=== PATIENT | female | born 1960 | race Caucasian/White ===

== ENCOUNTER 2019-10-09 13:39 | Observation (INO) | payer BC, OTHER ==
[~2019-10-09] VITALS: Ht 172.7 cm; Wt 113.4 kg
--- NOTE | 2019-10-09 14:20 | NUR ---
PATIENT TO ROOM 7
[2019-10-09] MEDS ORDERED: SODIUM CHLORIDE 0.9% 1000ML 1,000 ML IV STA (14:46)
--- OUTSIDE RECORDS SUMMARY | 2019-10-09 14:59 | XMS REPORT | Encounter Summary ---
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 Alma Lane Garcia 3 [phone] Reason for Visit Annual physical - female with [employer] Instructions 1. Adult health examination 2. Hyperglycemia due to type 2 diabetes mellitus HbA1c (hemoglobin A1c), blood 3. Screening for malignant neoplasm of c ervix pap, IG + HPV mRNA E6/E7 4. Screening for malignant neoplasm of b reast mammogram screening referral - PLEAS E CALL PATIENT TO SCHEDULE 5. Body mass index 25-29 - overweight learning about healthy weight Discussion Note: None recorded. Plan of Care Reminders Provider Appointments None recorded. Lab HbA1C (Hemoglobin a1C), Blood 01/15/2019 [facility] Pap, IG + HPV mRNA E6/E7 01/15/2019 [facility] Referral Mammogram Screening Referral [facility]2019 [facility] Procedures None recorded. Surgeries None recorded. Imaging None recorded. Medications Name Start Date aspirin 81 mg tablet,delayed release atorvastatin 40 mg tablet 1 tab qd clopidogrel 75 mg tablet 1 tab qd CoQ-10 3 times weekly Corlanor 5 mg tablet 1 tab bid Fish Oil 3 times weekly Fluarix Quad [id number] (PF) 60 mcg (15 mcg x 4)/0.5 mL IM syringe fluoxetine 20 mg capsule TAKE 1 CAPSULE DAILY IN THE MORNING (NEEDS A FOLLOW UP APPOINTMENT IN DECEMBER 2017) folic acid daily mesalamine 1.2 gram tablet,delayed relea se 2 am metformin 500 mg tablet Take 1 tablet twice a day by oral route. metoprolol tartrate 25 mg tablet 1/2 tab bid potassium ER tabs 3 times weekly ProAir HFA 90 mcg/actuation aerosol inhaler Stelara 90 mg/mL subcutaneous syringe once q 8 weeks Synthroid 50 mcg tablet TAKE 1 TABLET DAILY vitamin B complex 3 times weekly Vitamin D 4times weekly Medications Administered None recorded. Vitals Height Weight BMI Blood Pressure 5 ft 8 in 186 lbs 28.3 kg/m2 137/80 mm[Hg] Results Lab Results None recorded. Allergies Code Code System Name Reaction Severity Status Onset Penicillins Other Moderate Active Sulfa (Sulfonamide Antibiotics) Other Moderate Active Problems Name Status Onset Date Source Chronic Major Depressive Disorder, Single Episode Active 09/27/2015 Chronic Ulcerative Rectosigmoiditis Active 09/27/2015 Hyperglycemia Due to Type 2 Diabetes Mellitus Active Vitamin D Deficiency Active 11/15/2015 Mixed Hyperlipidemia Active 11/15/2015 Hypothyroidism Active 04/15/2016 Abnormal Findings on Diagnostic Imaging of Breast Active 08/26/2016 Coronary Angioplasty Active 12/06/2016 Atherosclerosis of Coronary Artery without Angina Pectoris Activ e 12/06/2016 Chronic Ulcerative Colitis Active 01/01/2017 Procedures Date Name Performed by 02/24/2018 Colonoscopy Information not avai lable 02/24/2018 Egd Information not avai lable 02/25/2016 Vascular Surgery Information not avai lable 02/24/2014 Colonoscopy Information not avai lable 02/25/2012 Colonoscopy Information not avai lable 02/25/1992 Tubal Ligation Information not avai lable 02/24/1970 ENT Surgery (Ear, Nose, Throat) Informat ion not available Vaccine List Vaccine Type influenza, injectable, quadrivalent 02/24/2017 11/24/2018 Social History Tobacco Smoking Status Former Smoker (1 1/2 PPD) Past Encounters 01/15/2019 Adult Health Examination; Hyperglycemia Due to Type 2 Diabetes Mellitus; Screening for Malignant Neoplasm of Cervix; Screening for Malignant Neoplasm of Breast; Body Mass Index 25-29 - Overweight Amber Siegel CONVEYANCER: [address], [place] [address], Ph. History of Present Illness Note:Chantale is a 58 year old female that presents with needing a physical exam and some labs as well as a pap smear. She has no acute complaints at this time and there are no acute signs of distress noted. She denies any chest pain, dizziness, palpitations shane shortness of breath at this time. Review of Systems Comprehensive General Adult ROS Reported By: Patient Constitutional: Constitutional: no fever, no night sweats, no significant weight gain, no significant weight loss, no exercise intolerance Eyes: Eyes: no dry eyes, no vision change, no irritation ENMT: Ears: no difficulty hearing, no ear pain. Nose: no frequent nosebleeds, no nose problems, no sinus problems. Mouth/Throat: no sore throat, no bleeding gums, no snoring, no dry mouth, no mouth ulcers, no oral abnormalities, no teeth problems Cardiovascular: Cardiovascular: no chest nella n, no arm pain on exertion, no shortness of breath when walking, no shortness of breath when lying down, no palpitations, no known heart murmur, no lightheadedness Respiratory: Respiratory: no cough, no wh eezing, no shortness of breath, no coughing up blood, no sleep apnea Gastrointestinal: Gastrointestinal: no abdomin al pain, no nausea, no vomiting, no constipation, normal appetite, no diarrhea, not vomiting blood, no dyspepsia, no GERD Genitourinary: Genitourinary: no incontinen ce, no difficulty urinating, no hematuria, no increased frequency Musculoskeletal: Musculoskeletal: no muscle a ches, no muscle weakness, no arthralgias/joint pain, no back pain, no swelling in the extremities Integumentary: Skin: no abnormal mole, no j aundice, no rashes, no laceration Neurologic: Neurologic: no loss of consc iousness, no weakness, no numbness, no seizures, no dizziness, no migraines, no headaches, no tremor Psychiatric: Psych: no depression, no sle ep disturbances, feeling safe in a relationship, no alcohol abuse, no anxiety, no hallucinations, no suicidal thoughts Endocrine: Endocrine: no fatigue Hematologic/Lymphatic: Hematologic/Lymphatic no swo llen glands, no bruising, no excessive bleeding Allergic/Immunologic: Allergy/Immunologic: no runn y nose, no sinus pressure, no itching, no hives, no frequent sneezing Physical Exam General Adult Exam (Female) Reported By: Patient Constitutional: General Appearance: healthy- appearing, well-nourished, well- developed. Level of Distress: NAD. Ambulation: ambulating normally Psychiatric: Insight: good judgement. Men vinh Status: active and alert, normal mood, normal affect. Orientation: to time, to place, to person. Memory: recent memory normal, remote memory normal Head: Head: normocephalic, atrauma tic Eyes: Lids and Conjunctivae: non-i njected, no discharge, no pallor. Pupils: PERRLA. Corneas: grossly intact. Fundoscopic: grossly normal except where noted, normal optic discs, normal vessels, no exudates, no hemorrhages. EOM: EOMI. Lens: clear. Sclerae: non-icteric. Vision: peripheral vision grossly intact, acuity grossly intact ENMT: Ears: no lesions on external ear, EACs clear, TMs clear, TM mobility normal. Hearing: no hearing loss. Nose: no lesions on external nose, nares patent, no septal deviation, nasal passages clear, no sinus tenderness, no nasal discharge. Lips, Teeth, and Gums: no mouth or lip ulcers, no bleeding gums, normal dentition. Oropharynx: moist mucous membranes, no erythema, no exudates, tonsils not enlarged Neck: Neck: supple, trachea midlin e, no masses, FROM. Lymph Nodes: no cervical LAD, no supraclavicular LAD, no axillary LAD, no inguinal LAD. Thyroid: no enlargement, non-tender, no nodules Lungs: Respiratory effort: no dyspn ea. Percussion: no dullness, flatness, or hyperresonance. Auscultation: breath sounds normal, good air movement, CTA except as noted, no wheezing, no rales/crackles, no rhonchi Cardiovascular: Apical Impulse: not displace d. Heart Auscultation: RRR, normal S1, normal S2, no murmurs, no rubs, no gallops. Neck vessels: no carotid bruits. Pulses including femoral / pedal: normal throughout Breast: Breast: normal appearance, n o masses, no abnormal secretions Abdomen: Bowel Sounds: normal. Inspec tion and Palpation: soft, non-distended, no tenderness, no guarding, no rebound tenderness, no masses, no CVA tenderness. Liver: non-tender, no hepatomegaly. Spleen: non-tender, no splenomegaly. Hernia: none palpable Female : External genitalia: normal, no lesions, no rash. Vagina: moist mucosa, no discharge. Cervix: no discharge, no cervical motion tenderness, no inflammation. Uterus: midline, smooth, normal size, non-tender. Adnexae: size WNL, no adnexal mass, no adnexal tenderness. Bladder and Urethra: normal bladder and urethra (except where noted) Rectal: Anus, Perineum, Rectum: norm al tone, no hemorrhoids, no fissures, no masses, stool heme negative Musculoskeletal:: Motor Strength and Tone: nor mal motor strength, normal tone. Joints, Bones, and Muscles: normal movement of all extremities, no bony abnormalities, no contractures, no malalignment, no tenderness. Extremities: no cyanosis, no edema, no varicosities, no palpable cord Neurologic: Gait and Station: normal gai t, normal station. Cranial Nerves: grossly intact. Sensation: grossly intact, monofilament test intact. Reflexes: DTRs 2+ bilaterally throughout. Coordination and Cerebellum: [id number] intact, no tremor Skin: Inspection and palpation: no rash, no lesions, no ulcer, no abnormal nevi, no induration, no nodules, good turgor, no jaundice. Nails: normal Back: Thoracolumbar Appearance: no rmal curvature
--- OUTSIDE RECORDS SUMMARY | 2019-10-09 14:59 | XMS REPORT | Encounter Summary ---
Author Organization Unknown Address [address] [place] [address] Phone [phone] Care Team Providers Care Speech Communication Instructor Name Role Phone Dr. Alma Garcia 3 [phone] Stacey Belle MD 82 [phone] Reason for Visit follow up visit; Telemedicine Visit Instructions 1. Hepatitis C screening hepatitis C virus RNA, quant, PCR, ser um or plasma 2. Hypothyroidism TSH, serum or plasma T4, free, serum 3. Tachycardia 4. Mixed hyperlipidemia lipid panel, serum CMP, serum or plasma 5. Vitamin D deficiency vitamin D, 25-hydroxy, total, serum 6. Atherosclerosis of coronary artery wi thout angina pectoris 7. Type 2 diabetes mellitus HbA1c (hemoglobin A1c), blood microalbumin/creatinine, mass ratio, u rine 8. Dyspnea ProAir HFA 90 mcg/actuation aerosol in haler 9. Anemia CBC w/ auto diff 10. Cramp in lower limb magnesium, serum or plasma 11. Fatigue vitamin B12 + folate, serum or blood Discussion Note: None recorded. Patient educational handouts: No information available. Plan of Care Reminders Provider Appointments None recorded. Lab Lipid Panel, Serum 06/11/2019 [facility] Laboratory CMP, Serum or Plasma 06/11/2019 [facility] - Laboratory HbA1C (Hemoglobin a1C), [facility] TSH, Serum or Plasma 06/11/2019 [facility] - Laboratory T4, Free, Serum 06/11/2019 [facility] Laboratory Hepatitis C Virus RNA, Quant, PCR, Serum or Plas ma 06/11/2019 [facility] Laboratory Vitamin D, 25-Hydroxy, Total, Serum 06/11/2019 [facility] - Laboratory Microalbumin/creatinine, Mass Ratio, Urine 06/10 [facility] - Laboratory CBC W/ Auto Diff 06/11/2019 [facility] - Laboratory Magnesium, Serum or Plasma 06/11/2019 [facility] - Laboratory Vitamin B12 + Folate, Serum or Blood 06/11/2019 [facility] Referral None recorded. Procedures None recorded. Surgeries None recorded. Imaging None recorded. Medications Name Start Date aspirin 81 mg tablet,delayed release atorvastatin 40 mg tablet 1 tab qd clopidogrel 75 mg tablet 1 tab qd Corlanor 5 mg tablet 1 tab bid Fish Oil 3 times weekly folic acid daily mesalamine 1.2 gram tablet,delayed relea se 2 am metformin 500 mg tablet Take 1 tablet 3 times a day by oral route. 06/11/2019 metoprolol tartrate 25 mg tablet Take 1 tablet twice a day by oral route. potassium ER tabs 3 times weekly ProAir HFA 90 mcg/actuation aerosol inha ler Inhale 2 puffs every 4-6 hours by inhalation route as needed. Stelara 90 mg/mL subcutaneous syringe once q 8 weeks Synthroid 50 mcg tablet TAKE 1 TABLET DAILY vitamin B complex when she thinks about ut Vitamin D 4times weekly Medications Administered None recorded. Vitals Height 5 ft 8 in Results Lab Results None recorded. Allergies Code [...] Vaccine List Vaccine Type influenza, injectable, quadrivalent 11/21/2017 11/24/2018 Social History Tobacco Smoking Status Former Smoker (1 1/2 PPD) Past Encounters 06/11/2019 Hepatitis C Screening; Hypothyroidism; Tachycardia; Mixed Hyperlipidemia; Vitamin D Deficiency; Atherosclerosis of Coronary Artery without Angina Pectoris; Type 2 Diabetes Mellitus; Dyspnea; Anemia; Cramp in Lower Limb; Fatigue Alma Garcia MD: [facility] [address] [address], Ph. History of Present Illness Note:I confirm that I received verbal consent from the patient for the virtual visit.<div>
</div><div>Ms Buck has c/o feeling tired with exertion. 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 Her BP systolic is sometimes in the 160 range and HR of 120-130 at times. she did see her cardio and did stress test, ECHO , and was advised to do heart cath. Her metoprolol was increased.</div><div>she also c/o leg cramps. </div><div>Denies fevers/ weight loss.</div><div>GI issues have been okay. she has hx anemia</div ><div>DM has been okay</div> Review of Systems Comprehensive General Adult ROS Reported By: Patient Constitutional: Constitutional: no fever, no night sweats, no significant weight gain, no significant weight loss, no exercise intolerance Eyes: Eyes: no dry eyes ENMT: Ears: no difficulty hearing. Mouth/Throat: no sore throat Cardiovascular: Cardiovascular: no chest nella n, no arm pain on exertion, shortness of breath when walking, lightheadedness Respiratory: Respiratory: no cough, no wh eezing, no shortness of breath Gastrointestinal: Gastrointestinal: no abdomin al pain, no nausea Genitourinary: Genitourinary: no difficulty urinating Musculoskeletal: Musculoskeletal: no arthralg ias/joint pain Integumentary: Skin: no abnormal mole, no j aundice, no rashes, no laceration Neurologic: Neurologic: no loss of consc iousness, no weakness, no numbness, no seizures, no dizziness, no migraines, no headaches, no tremor Psychiatric: Psych: no depression, no sle ep disturbances, no alcohol abuse, no anxiety, no hallucinations, no suicidal thoughts Endocrine: Endocrine: fatigue Hematologic/Lymphatic: Hematologic/Lymphatic no swo llen glands, no excessive bleeding Allergic/Immunologic: Allergy/Immunologic: no runn y nose, no itching, no hives, no frequent sneezing Physical Exam Telemedicine/Virtual Visit Reported By: Patient Constitutional: General Appearance: healthy- appearing, well-nourished, well- developed. Level of Distress: NAD. Ambulation: ambulating normally Psychiatric: Insight: good judgement. Men vinh Status: active and alert, normal mood, normal affect. Orientation: to time, to place, to person. Memory: recent memory normal, remote memory normal Head: Head: normocephalic, atrauma tic Eyes: Lids and Conjunctivae: non-i njected. Sclerae: non-icteric ENMT: Ears: no lesions on external ear. Oropharynx: moist mucous membranes Neck: Neck: supple Lungs: Respiratory effort: no dyspn ea Neurologic: Gait and Station: normal gai t. Cranial Nerves: grossly intact. Coordination and Cerebellum: no tremor Skin: Inspection and palpation: no rash
--- OUTSIDE RECORDS SUMMARY | 2019-10-09 14:59 | XMS REPORT | Continuity of Care Document ---
Author Author [facility] t Organization [facility] Address [address] [place] [address] Phone Unavailable Care Team Providers Care Manager Of Global Name Role Phone Unavailable Unavailable Problems Condition Name Condition Details Condition Category Status Onset Date Resolution Date Last Treatment Date Treating Clinician Comments Source Chronic ulcerative colitis Chronic Ulcerative Colitis Problem Active 2017-01-01 00:00:00 [facility] Coronary angioplasty Coronary Angioplasty Problem Active 00:00:00 [facility] ice Atherosclerosis of coronary artery without angina pect liam Atherosclerosis of Coronary Artery without Angina Pectoris Problem Active 2016-12-06 00:00:0 0 [facility] Abnormal findings on diagnostic imaging of breast Abno rmal Findings on Diagnostic Imaging of Breast Problem Active 2016-08-26 00:00:00 [facility] Hypothyroidism Hypothyroidism Problem Active 2016-04-15 00:00:00 [facility] Vitamin D deficiency Vitamin D Deficiency Problem Active 00:00:00 [facility] ice Mixed hyperlipidemia Mixed Hyperlipidemia Problem Active 00:00:00 [facility] ice Chronic major depressive disorder, single episode [employer] xavier Major Depressive Disorder, Single Episode Problem Active 2015-09-27 00:00:00 [facility] Chronic ulcerative rectosigmoiditis Chronic Ulcerative Rectosigm oiditis Problem Active 2015-09-27 00:00:00 [facility] Hyperglycemia due to type 2 diabetes mellitus Hypergly cemia Due to Type 2 Diabetes Mellitus Problem Active 2015-09-27 00:00:00 [facility] Allergies, Adverse Reactions, Alerts Allergy Name Allergy Type Status Severity Reaction(s) Onset Date Inacti ve Date Treating Clinician Comments Source PENICILLINS Allergy to substance Active Moderate Other [facility] SULFA (SULFONAMIDE ANTIBIOTICS) Allergy to substance Active Moderate Ot her [facility] Social History Smoking Status Start Date Stop Date Source Former Smoker [facility] caridad Medications Ordered Medication Name Filled Medication Name Start Date Stop Da te Current Medication? Ordering Clinician Indication Dosage Frequency Signature (SIG) Comments Components Source metformin 500 mg tablet Take 1 tablet 3 times a day by oral route. metformin 500 mg tablet Take 1 tablet 3 times a day by oral route. 2019-06-11 00:00:00 No 1 TID metformin 500 mg tablet Take 1 tablet 3 times a day by oral route. [facility] aspirin 81 mg tablet,delayed release aspirin 81 mg tablet,delayed r elease No aspirin 81 mg tablet,delayed release [facility] atorvastatin 40 mg tablet 1 tab qd atorvastatin 40 mg tablet 1 tab qd No atorvastatin 40 mg tablet 1 tab qd [facility] clopidogrel 75 mg tablet 1 tab qd clopidogrel 75 mg tablet 1 tab qd No clopidogrel 75 mg tablet 1 tab qd [facility] Corlanor 5 mg tablet 1 tab bid Corlanor 5 mg tablet 1 tab bid No Corlanor 5 mg tablet 1 tab bid [facility] Fish Oil 3 times weekly Fish Oil 3 times weekly No Fish Oil 3 times weekly [facility] ice folic acid daily folic acid daily No folic acid daily [facility] mesalamine 1.2 gram tablet,delayed release 2 am mesala mine 1.2 gram tablet,delayed release 2 am No mesalamine 1.2 gram tablet,delayed release 2 am [facility] ice metoprolol tartrate 25 mg tablet Take 1 tablet twice a day by oral route. metoprolol tartrate 25 mg tablet Take 1 tablet twice a day by oral route. No 1 BID metoprolol tart rate 25 mg tablet Take 1 tablet twice a day by oral route. [facility] potassium ER tabs 3 times weekly potassium ER tabs 3 times weekly No potassium ER tabs 3 times weekly [facility] ProAir HFA 90 mcg/actuation aerosol inha ler Inhale 2 puffs every 4-6 hours by inhalation route as needed. ProAir HFA 90 mcg/actuation aerosol inha ler Inhale 2 puffs every 4-6 hours by inhalation route as needed. No 2puff(s) Q5H ProAir HFA 90 mcg/actuation aerosol inhaler Inhale 2 puffs every 4-6 hours by inhalation route as needed. [facility] Stelara 90 mg/mL subcutaneous syringe once q 8 weeks S telara 90 mg/mL subcutaneous syringe once q 8 weeks No Stelara 90 mg/mL subcutaneous syringe once q 8 weeks [facility] Pr actice Synthroid 50 mcg tablet TAKE 1 TABLET DAILY Synthroid 50 mcg tablet TAKE 1 TABLET DAILY No Synthroid 50 mcg tablet T AJIT 1 TABLET DAILY [facility] vitamin B complex when she thinks about ut vitamin B c omplex when she thinks about ut No vitamin B complex when she th inks about ut [facility] Vitamin D 4times weekly Vitamin D 4times weekly No Vitamin D 4times weekly [facility] ice Immunizations Ordered Immunization Name Filled Immunization Name Date Status Comments Source influenza, injectable, quadrivalent influenza, injectable, q uadrivalent 2018-11-24 00:00:00 Completed [facility] influenza, injectable, quadrivalent influenza, injectable, q uadrivalent 2017-11-21 00:00:00 Completed [facility] Vital Signs Vital Name Observation Time Observation Value Comments Source Height 2019-06-11 00:00:00 68 [in_i] [facility] BP Diastolic 2019-01-15 00:00:00 80 mm[Hg] [facility] Height 2019-01-15 00:00:00 68 [in_i] [facility] BMI (Body Mass Index) 2019-01-15 00:00:00 28.3 kg/m2 [facility] BP Systolic 2019-01-15 00:00:00 137 mm[Hg] [facility] Body Weight 2019-01-15 00:00:00 186 [lb_av] [facility] BP Diastolic 2018-09-28 00:00:00 86 mm[Hg] [facility] Height 2018-09-28 00:00:00 68 [in_i] [facility] BMI (Body Mass Index) 2018-09-28 00:00:00 27.1 kg/m2 [facility] BP Systolic 2018-09-28 00:00:00 135 mm[Hg] [facility] Body Weight 2018-09-28 00:00:00 178 [lb_av] [facility] Procedures Procedure Date / Time Performed Performing Clinician Sourc e XR, thoracic spine, 2 view 2018-09-28 00:00:00 [facility] Colonoscopy 2018-02-24 [facility] 2018-[facility]:00:00 [facility] Vascular Surgery 2016-02-25 00:00:00 [facility] Colonoscopy 2014-02-24 00:00:00 [facility] Colonoscopy 2012-02-25 00:00:00 [facility] Tubal Ligation 1992-02-25 00:00:00 [facility] ENT Surgery (Ear, Nose, Throat) 1970-02-24 00:00:00 [facility] Plan of Care Planned Activity Planned Date Details Comments Source Diagnostic Test Pending 2019-06-11 00:00:00 lipid panel, ser um [code = lipid panel, serum] [facility] Diagnostic Test Pending 2019-06-11 00:00:00 CMP, serum or pl asma [code = CMP, serum or plasma] [facility] Diagnostic Test Pending 2019-06-11 00:00:00 HbA1c (hemoglobi n A1c), blood [code = HbA1c (hemoglobin A1c), blood] [facility] Diagnostic Test Pending 2019-06-11 00:00:00 TSH, serum or pl asma [code = TSH, serum or plasma] [facility] Diagnostic Test Pending 2019-06-11 00:00:00 T4, free, serum [code = T4, free, serum] [facility] Diagnostic Test Pending 2019-06-11 00:00:00 hepatitis C viru s RNA, quant, PCR, serum or plasma [code = hepatitis C virus RNA, quant, PCR, serum or plasma] [facility] Diagnostic Test Pending 2019-06-11 00:00:00 vitamin D, 25-hy droxy, total, serum [code = vitamin D, 25-hydroxy, total, serum] [facility] Diagnostic Test Pending 2019-06-11 00:00:00 microalbumin/cre atinine, mass ratio, urine [code = microalbumin/creatinine, mass ratio, urine] [facility] Diagnostic Test Pending 2019-06-11 00:00:00 CBC w/ auto diff [code = CBC w/ auto diff] [facility] Diagnostic Test Pending 2019-06-11 00:00:00 magnesium, serum or plasma [code = magnesium, serum or plasma] [facility] Diagnostic Test Pending 2019-06-11 00:00:00 vitamin B12 + fo late, serum or blood [code = vitamin B12 + folate, serum or blood] [facility] Encounters Start Date/Time End Date/Time Encounter Type Admission Type [facility] Facility Care Department Encounter ID Source 2019-06-11 00:00:00 2019-06-11 00:00:00 Alma Garcia MD: [address], [place] [address], Ph. V [facility] - [facility] [place] [id number] [facility] 2019-01-15 00:00:00 2019-01-15 00:00:00 Messi Welch P: [address], [place] [address], Ph. V [facility] - [facility] [place] [id number] [facility] 2018-09-28 00:00:00 2018-09-28 00:00:00 Alma Garcia MD: [address], [place] [address], Ph. V [facility] - [facility] [id number] [facility] Results This patient has no known results.
--- OUTSIDE RECORDS SUMMARY | 2019-10-09 14:59 | XMS REPORT | Encounter Summary ---
Author Organization Unknown Address [address] [place] [id number] Phone [phone] Care Team Providers Care Cryptologic Supervisor Name Role Phone Dr. Alma Lane Garcia 3 [phone] Reason for Visit low back pain Instructions 1. Thoracic back pain XR, thoracic spine, 2 view 2. Body mass index 25-29 - overweight learning about healthy weight Discussion Note: None recorded. Plan of Care Reminders Provider Appointments None recorded. Lab None recorded. Referral None recorded. Procedures None recorded. Surgeries None recorded. Imaging XR, Thoracic Spine, 2 View 09/28/2018 [facility] [place] Medications Name Start Date aspirin 81 mg tablet,delayed release atorvastatin 40 mg tablet 1 tab qd clopidogrel 75 mg tablet 1 tab qd Corlanor 5 mg tablet 1 tab bid Fluarix Quad 1744-1860 (PF) 60 mcg (15 mcg x 4)/0.5 mL IM syringe fluoxetine 20 mg capsule TAKE 1 CAPSULE DAILY IN THE MORNING (NEEDS A FOLLOW UP APPOINTMENT IN DECEMBER 2017) mesalamine 1.2 gram tablet,delayed relea se 2 am metformin 500 mg tablet Take 1 tablet twice a day by oral route. metoprolol tartrate 25 mg tablet 1/2 tab bid ProAir HFA 90 mcg/actuation aerosol inhaler Stelara 90 mg/mL subcutaneous syringe once q 8 weeks Synthroid 50 mcg tablet TAKE 1 TABLET DAILY Medications Administered None recorded. Vitals Height Weight BMI Blood Pressure 5 ft 8 in 178 lbs 27.1 kg/m2 135/86 mm[Hg] Lab Results None recorded. Allergies Code Code System Name Reaction Severity Status Onset Penicillins Other Moderate Active Sulfa (Sulfonamide Antibiotics) Other Moderate Active Problems None recorded. Procedures Date Name Performed by 02/24/2018 Colonoscopy Information not avai lable 02/24/2018 Egd Information not avai lable 02/25/2016 Vascular Surgery Information not avai lable 02/24/2014 Colonoscopy Information not avai lable 02/25/2012 Colonoscopy Information not avai lable 02/25/1992 Tubal Ligation Information not avai lable 02/24/1970 ENT Surgery (Ear, Nose, Throat) Informat ion not available 09/28/2018 XR, Thoracic Spine, 2 View [facility] [place] [address] [place] [address] (Work Place) Vaccine List Vaccine Type influenza, injectable, quadrivalent 02/24/2017 Social History Tobacco Smoking Status Former Smoker (1 1/2 PPD) Past Encounters 09/28/2018 Thoracic Back Pain; Body Mass Index 25-29 - Overweight Alma Garcia MD: [address], [place] [address], Ph. History of Present Illness Acute Low Back Pain Reported By: Patient Notes: pt here with rt mid back nella n for 5 days. she had been working hard . it hurts more with activity. she also has pains in the thoraCIC spine area. 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 Review of Systems:ROS as noted in the HPI Review of Systems None recorded. Physical Exam General Adult Exam (Female) Reported By: Patient Director Chemistry: Director Chemistry: present Constitutional: General Appearance: healthy- appearing Psychiatric: Insight: good judgement. Men vinh Status: active and alert. Orientation: to time Head: Head: normocephalic Eyes: Lids and Conjunctivae: non-i njected. Pupils: PERRLA. EOM: EOMI ENMT: Ears: no lesions on external ear. Oropharynx: moist mucous membranes Neck: Neck: supple. Lymph Nodes: n o cervical LAD. Thyroid: no enlargement Lungs: Respiratory effort: no dyspn ea. Auscultation: breath sounds normal Cardiovascular: Heart Auscultation: RRR. Pul ses including femoral / pedal: normal throughout Abdomen: Bowel Sounds: normal. Inspec tion and Palpation: soft, non-distended, no tenderness. Hernia: none palpable Musculoskeletal:: Motor Strength and Tone: nor mal motor strength. Joints, Bones, and Muscles: normal movement of all extremities. Extremities: no edema Neurologic: Gait and Station: normal gai t. Cranial Nerves: grossly intact. Sensation: grossly intact. Reflexes: DTRs 2+ bilaterally throughout. Coordination and Cerebellum: no tremor Skin: Inspection and palpation: no rash. Nails: normal Back: Thoracolumbar Appearance: no rmal curvature
[2019-10-09] MEDS ORDERED: TETANUS/DIPHTHERIA TOX ADULT 0.5 ML SYR IM ONE (15:00)
[2019-10-09] MEDS ORDERED: ONDANSETRON HCL INJ 2MG/ML 2ML 2 MG/ML VIAL IV NR (15:15)
[2019-10-09] MEDS ORDERED: MORPHINE SULFATE 2 MG/ML SYR 1ML IV NR (15:15)
[2019-10-09 15:26] LABS: BASOPHILS # (AUTO) 0.1 (0.0-0.1); BASOPHILS % 0.5 % (0.0-1.0); EOSINOPHILS # (AUTO) 0.2 (0.0-0.4); EOSINOPHILS % 1.9 % (0.0-6.0); HEMATOCRIT 35.2 % (34.2-44.1); HEMOGLOBIN 11.2 g/dL (12.0-16.0); LYMPHOCYTES # (AUTO) 0.7 (1.0-3.2); LYMPHOCYTES % 7.6 % (18.0-39.1); MEAN CORPUSCULAR HEMOGLOBIN 31.9 pg (28-32); MEAN CORPUSCULAR HGB CONC 31.8 g/dL (31-35); MEAN CORPUSCULAR VOLUME 100.3 fL (81-99); MONOCYTES # (AUTO) 0.6 (0.2-0.8); MONOCYTES % 6.2 % (4.4-11.3); NEUTROPHILS # (AUTO) 8.1 (2.1-6.9); NEUTROPHILS % 83.3 % (38.7-80.0); PLATELET COUNT 273 x10e3/uL (140-360); RED BLOOD COUNT 3.51 x10e6/uL (3.6-5.1); RED CELL DISTRIBUTION WIDTH 13.2 % (11.7-14.4)
[2019-10-09 15:45] LABS: INR 0.89; PARTIAL THROMBOPLASTIN TIME 26.3 seconds (23.8-35.5); PROTHROMBIN TIME 12.5 seconds (11.9-14.5)
[2019-10-09 15:55] LABS: ALBUMIN/GLOBULIN RATIO 1.3 (0.8-2.0); CALCIUM 9.4 mg/dL (8.4-10.2); CREATININE, SERUM 0.99 mg/dL (0.57-1.11); MAGNESIUM 1.7 MG/DL (1.3-2.1)
--- NOTE | 2019-10-09 16:26 | NUR ---
NOTIFIED ELLIOTT OF NEED FOR STAT ECHO.
[2019-10-09] MEDS ORDERED: ONDANSETRON HCL INJ 2MG/ML 2ML 2 MG/ML VIAL IV PRN (16:30)
[2019-10-09] MEDS ORDERED: MORPHINE SULFATE 2 MG/ML SYR 1ML IV PRN (16:30)
[2019-10-09] MEDS ORDERED: NITROGLYCERIN 0.4 MG SUBL SL PRN (16:30)
[2019-10-09 16:34] LABS: BILIRUBIN,URINE NEGATIVE (NEGATIVE); CLARITY,URINE HAZY (CLEAR); COLOR,URINE YELLOW (YELLOW); KETONES,URINE NEGATIVE (NEGATIVE); LEUKOCYTE ESTERASE ,URINE SMALL (NEGATIVE); NITRITE,URINE NEGATIVE (NEGATIVE); PROTEIN,URINE DIPSTICK NEGATIVE (NEGATIVE); URINE UROBILINOGEN 0.2 mg/dL (0.2 - 1)
[2019-10-09 16:39] LABS: BACTERIA,URINE FEW /HPF; EPITHELIAL CELLS,URINE FEW /LPF; RBC,URINE 0-5 /HPF (0-5)
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
--- OUTSIDE RECORDS SUMMARY | 2019-10-09 16:51 | XMS REPORT | Continuity of Care Document ---
Author Author [facility] t Organization [facility] Address [address] [place] [address] Phone Unavailable Care Team Providers Care Aerospace Engineer Officer Armament Name Role Phone Unavailable Unavailable Problems Condition Name Condition Details Condition Category Status Onset Date Resolution Date Last Treatment Date Treating Clinician Comments Source Chronic ulcerative colitis Chronic Ulcerative Colitis Problem Active 2017-01-01 00:00:[address] [facility] Coronary angioplasty Coronary Angioplasty Problem Active 00:00:00 [facility] ice Atherosclerosis of coronary artery without angina pect liam Atherosclerosis of Coronary Artery without Angina Pectoris Problem Active 2016-12-06 00:00:[address] [facility] Abnormal findings on diagnostic imaging of breast Abno rmal Findings on Diagnostic Imaging of Breast Problem Active 2016-08-26 00:00:[address] [facility] Hypothyroidism Hypothyroidism Problem Active 2016-04-15 00:00:[address] [facility] Vitamin D deficiency Vitamin D Deficiency Problem Active 00:00:00 [facility] ice Mixed hyperlipidemia Mixed Hyperlipidemia Problem [facility]00[facility] Chronic major depressive disorder, single episode [employer] xavier Major Depressive Disorder, Single Episode Problem Active 2015-09-27 00:00:[address] [facility] Chronic ulcerative rectosigmoiditis Chronic Ulcerative Rectosigm oiditis Problem Active 2015-09-27 00:00:00 [facility] Hyperglycemia due to type 2 diabetes mellitus Hypergly cemia Due to Type 2 Diabetes Mellitus Problem Active 2015-09-27 00:00:[address] [facility] Allergies, Adverse Reactions, Alerts Allergy Name Allergy Type Status Severity Reaction(s) Onset Date Inacti ve Date Treating Clinician Comments Source PENICILLINS Allergy to substance Active Moderate Other [facility] SULFA (SULFONAMIDE ANTIBIOTICS) Allergy to substance Active Moderate Ot her [facility] Social History Smoking Status Start Date Stop Date Source Former Smoker [facility] caridad Medications Ordered Medication Name Filled Medication [...] 3 times a day by oral route. [facility] aspirin 81 mg tablet,delayed release aspirin 81 mg tablet,delayed r elease No aspirin 81 mg tablet,delayed release [facility] atorvastatin 40 mg tablet 1 tab qd atorvastatin 40 mg tablet 1 tab qd No atorvastatin 40 mg tablet [address] tab [address] [facility] clopidogrel 75 mg tablet 1 tab qd clopidogrel 75 mg tablet 1 tab qd No clopidogrel 75 mg tablet 1 tab qd [facility] Corlanor 5 mg tablet 1 tab bid Corlanor 5 mg tablet 1 tab bid No Corlanor 5 mg tablet 1 tab bid [facility] Fish Oil 3 times weekly Fish Oil 3 times weekly No Fish Oil [address] [facility] folic acid daily folic acid daily No folic acid daily [facility] mesalamine 1.2 gram tablet,delayed release 2 am mesala mine 1.2 gram tablet,delayed release 2 am No mesalamine 1.2 gram tablet,delayed release [address] [facility] metoprolol tartrate 25 mg tablet Take 1 tablet twice a day by oral route. metoprolol tartrate 25 mg tablet Take 1 tablet twice a day by oral route. No 1 BID metoprolol tart rate 25 mg tablet Take 1 tablet twice a day by oral route. [facility] potassium ER tabs 3 times weekly potassium ER tabs 3 times weekly No potassium ER tabs [address] [facility] ProAir HFA 90 mcg/actuation aerosol inha ler Inhale 2 puffs every 4-6 hours by inhalation route as needed. ProAir HFA 90 mcg/actuation aerosol inha ler Inhale 2 puffs every 4-6 hours by inhalation route as needed. No 2puff(s) Q5H ProAir HFA 90 mcg/actuation aerosol inhaler Inhale 2 puffs every 4-6 hours by inhalation route as needed. [facility] Stelara 90 mg/mL subcutaneous syringe once q 8 weeks S telara 90 mg/mL subcutaneous syringe once q 8 weeks No Stelara 90 mg/mL subcutaneous syringe once q 8 weeks [facility] Pr [facility]ice Synthroid 50 mcg tablet TAKE 1 TABLET DAILY Synthroid 50 mcg tablet TAKE 1 TABLET DAILY No Synthroid 50 mcg tablet T AJIT 1 TABLET [address] [facility] vitamin B complex when she thinks about ut vitamin B c omplex when she thinks about ut No vitamin B complex when she th inks about ut [facility] Vitamin D 4times weekly Vitamin D 4times weekly No Vitamin D 4times weekly [facility] Immunizations Ordered Immunization Name Filled Immunization Name Date Status Comments Source influenza, injectable, quadrivalent influenza, injectable, q uadrivalent 2018-11-24 00:00:[address] [facility], injectable, quadrivalent influenza, injectable, q uadrivalent 2017-11-21 00:00:[address] [facility] Vital Signs Vital Name Observation Time Observation Value Comments Source Height 2019-06-11 00:00:00 68 [in_i] [facility] BP Diastolic 2019-01-15 00:00:00 80 mm[Hg] [facility] Height 2019-01-15 00:00:00 68 [in_i] [facility] BMI (Body Mass Index) 2019-01-15 00:00:00 28.3 kg/m2 [facility] BP Systolic 2019-01-15 00:00:00 137 mm[Hg] [facility] Body Weight 2019-01-15 00:00:00 186 [lb_av] [facility] BP Diastolic 2018-09-28 00:00:00 86 mm[Hg] [facility] Height 2018-09-28 00:00:00 68 [in_i] [facility] BMI (Body Mass Index) 2018-09-28 00:00:00 27.1 kg/m2 [facility] BP Systolic 2018-09-28 00:00:00 135 mm[Hg] [facility] Body Weight 2018-09-28 00:00:00 178 [lb_av] [facility] Procedures Procedure Date / Time Performed Performing Clinician Sourc e XR, thoracic spine, 2 view 2018-09-28 00:00:00 [facility] Colonoscopy 2018-02-24 [facility] Vascular Surgery 2016-02-25 00:00:00 [facility] Colonoscopy 2014-02-24 00:00:00 [facility] Colonoscopy 2012-02-25 00:00:00 [facility] Tubal Ligation 1992-02-25 00:00:00 [facility] ENT Surgery (Ear, Nose, Throat) 1970-02-24 00:00:[address] [facility] Plan of Care Planned Activity Planned Date Details Comments Source Diagnostic Test Pending 2019-06-11 00:00:00 lipid panel, ser um [code = lipid panel, serum] [facility] Diagnostic Test Pending 2019-06-11 00:00:00 CMP, serum or pl asma [code = CMP, serum or plasma] [facility] Diagnostic Test Pending 2019-06-11 00:00:00 HbA1c (hemoglobi n A1c), blood [code = HbA1c (hemoglobin A1c), blood] [facility] ce Diagnostic Test Pending 2019-06-11 00:00:00 TSH, serum or pl asma [code = TSH, serum or plasma] [facility] Diagnostic Test Pending 2019-06-11 00:00:00 T4, free, serum [code = T4, free, serum] [facility] Diagnostic Test Pending 2019-06-11 00:00:00 hepatitis C viru s RNA, quant, PCR, serum or plasma [code = hepatitis C virus RNA, quant, PCR, serum or plasma] [facility] Diagnostic Test Pending 2019-06-11 00:00:00 vitamin D, 25-hy droxy, total, serum [code = vitamin D, 25-hydroxy, total, serum] [facility] Diagnostic Test Pending 2019-06-11 00:00:00 microalbumin/cre atinine, mass ratio, urine [code = microalbumin/creatinine, mass ratio, urine] [facility] Diagnostic Test Pending 2019-06-11 00:00:00 CBC w/ auto diff [code = CBC w/ auto diff] [facility] Diagnostic Test Pending 2019-06-11 00:00:00 magnesium, serum or plasma [code = magnesium, serum or plasma] [facility] Diagnostic Test Pending 2019-06-11 00:00:00 vitamin B12 + fo late, serum or blood [code = vitamin B12 + folate, serum or blood] [facility] Encounters Start Date/Time End Date/Time Encounter Type Admission Type [facility] Facility Care Department Encounter ID Source 2019-06-11 00:00:00 2019-06-11 00:00:00 Alma Garcia MD: [address], [place] [address], Ph. V [facility] [place] [id number] [facility] 2019-01-15 00:00:00 2019-01-15 00:00:00 Messi Welch P: [address], [place] [address], Ph. [facility] [place] [id number] [facility] 2018-09-28 00:00:00 2018-09-28 00:00:00 Alma Garcia MD: [address], [place] [address], Ph. V [facility] [id number] [facility] Results This patient has no known results.
--- NOTE | 2019-10-09 17:17 | Diagnostic Imaging Report ---
X-ray 2 views of the lower leg. HISTORY: Pain. COMPARISON: None available. FINDINGS: Bones/joints: No acute fracture or dislocation. Osseous fragment seen in the lateral knee joint space likely reflects partially visualized fabella. Soft tissues: No focal soft tissue masses. IMPRESSION: No acute radiographic abnormality. Signed by: Xni Perez MD on 10/09/2019 5:14 PM
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
[2019-10-09] MEDS ORDERED: IOPAMIDOL 370 MG/ML 200 ML INFUS..BTL INJ ONE (18:44)
[2019-10-09] MEDS ORDERED: SODIUM CHLORIDE 0.9% 50ML 50 ML ONE (18:44)
--- NOTE | 2019-10-09 19:22 | Diagnostic Imaging Report ---
EXAM: CT Chest, Abdomen and Pelvis WITH contrast INDICATION: ^TRAUMA PROTOCOL ^[id number] ^[id number] COMPARISON: None. TECHNIQUE: Chest, abdomen and pelvis were scanned utilizing a multidetector helical scanner from the lung apex to the pubic symphysis after administration of IV contrast. Coronal and sagittal reformations were obtained. Scan was performed during arterial phase through the chest and early portal venous phase through the abdomen and pelvis. No oral contrast was given. IV CONTRAST: 100 mL of Isovue-370 ORAL CONTRAST: None COMPLICATIONS: None RADIATION DOSE: Total DLP: 1784.05 mGy*cm Estimated effective dose: (DLP x 0.015 x size factor) mSv CTDIvol has been reviewed. It is below the limits set by the Radiation Protocol Committee (RPC). FINDINGS: LINES and TUBES: None. LUNGS AND AIRWAYS: The lungs are unremarkable. Airways are normal. PLEURA: The pleural spaces are clear. HEART AND MEDIASTINUM: The thyroid gland is normal. No mediastinal, hilar or axillary lymphadenopathy. The heart is normal in size.. There is no pericardial effusion. Atherosclerotic calcification of aorta and coronary arteries. HEPATOBILIARY: Hepatic steatosis. No focal hepatic lesions. No liver laceration. Common bile duct distention. GALLBLADDER: No radio-opaque stones or sludge. No wall thickening. SPLEEN: No splenomegaly. No splenic laceration. PANCREAS: No focal masses or ductal dilatation. ADRENALS: No adrenal nodules KIDNEYS/URETERS: Kidneys enhance symmetrically. No hydronephrosis. No cystic or solid mass lesions. No stones. Left renal midpole scarring. GI TRACT: No abnormal distention, wall thickening, or evidence of bowel obstruction. Appendix is normal. Featureless rectosigmoid colon which can be seen with history of inflammatory bowel disease. PELVIC ORGANS/BLADDER: Prominent right ovary. Left ovary and calcifications. Bladder is unremarkable. LYMPH NODES: No lymphadenopathy. VESSELS: There is moderate atherosclerotic disease in the aorta and major arterial branches. Focally ectatic infrarenal abdominal aorta measuring 2.4 cm. There is also mild ectasia before bifurcation, measuring 2.2 cm. No aneurysmal dilatation. PERITONEUM / RETROPERITONEUM: No free air or fluid. BONES: Unremarkable. SOFT TISSUES: Unremarkable. IMPRESSION: No evidence of traumatic injury in chest, abdomen, or pelvis. Incidental findings: 1. Atherosclerotic calcification of aorta and coronary arteries. Focally ectatic areas of abdominal aorta. No aneurysmal dilatation. 2. Common bile duct distention. If there is clinical concern for biliary obstruction, MRCP can be obtained for further evaluation. 3. Prominent right ovary, which can be further evaluated with nonurgent pelvic ultrasound. 4. Hepatic steatosis. Signed by: Dr. Rian Hurtado MD on 10/09/2019 7:18 PM
[2019-10-09 19:50] VITALS: BP 132/66
[2019-10-09 20:00] VITALS: BP 132/66
--- NOTE | 2019-10-09 20:00 | NUR ---
Received pt from ER. Pt alert and oriented x 3. Denies any pain or discomfort. Vitals stable. IV intact and patent. No physical needs at this time. Will continue to monitor pt.
[2019-10-09] MEDS ORDERED: DEXTROSE 50% SYRINGE 50 ML IV PRN (20:45)
[2019-10-09] MEDS ORDERED: ACETAMINOPHEN/CODEINE 300MG - 30MG TAB PO PRN (20:45)
[2019-10-09] MEDS ORDERED: HYDRALAZINE HCL 20 MG/ML VIAL IV PRN (20:45)
[2019-10-09] MEDS ORDERED: ACETAMINOPHEN 325 MG TAB PO PRN (20:45)
[2019-10-09] MEDS: INSULIN LISPRO 100 UNIT/1 ML 3ML VIAL SQ SCH (21:00)
--- NOTE | 2019-10-09 21:00 | NUR ---
Pt refuses SCD pump placement. Pt states they would be an inconvenience because she has ulcerative colitis and gets up frequently. No other needs at this time. Will continue to monitor pt.
[2019-10-10] VITALS: BP 125/57
[2019-10-10 04:00] VITALS: BP 119/59
[2019-10-10] MEDS ORDERED: CORLANOR5 MG PO (04:13)
[2019-10-10] MEDS ORDERED: VITAMIN D32400 UNIT/ PO (04:13)
[2019-10-10] MEDS ORDERED: FOLIC ACID0.4 MG (04:13)
[2019-10-10] MEDS ORDERED: ASPIRIN81 MG PO (04:13)
[2019-10-10] MEDS ORDERED: SIMETHICONE80 MG PO (04:13)
[2019-10-10] MEDS ORDERED: LIPITOR20 MG PO (04:13)
[2019-10-10] MEDS ORDERED: LIALDA1.2 GM PO (04:13)
[2019-10-10] MEDS ORDERED: METFORMIN HCL500 MG PO (04:13)
[2019-10-10] MEDS ORDERED: METOPROLOL SUCC25 MG PO (04:13)
[2019-10-10] MEDS ORDERED: CHLORPHENIRAMINE4 MG PO (04:13)
[2019-10-10] MEDS ORDERED: POTASSIUM CITR10 MEQ PO (04:13)
[2019-10-10] MEDS ORDERED: PLAVIX75 MG PO (04:13)
[2019-10-10] MEDS ORDERED: SYNTHROID50 MCG PO (04:13)
[2019-10-10 04:58] LABS: BASOPHILS % 0.7 % (0.0-1.0); EOSINOPHILS # (AUTO) 0.2 (0.0-0.4); EOSINOPHILS % 4.4 % (0.0-6.0); HEMATOCRIT 33.2 % (34.2-44.1); HEMOGLOBIN 10.6 g/dL (12.0-16.0); LYMPHOCYTES # (AUTO) 1.1 (1.0-3.2); LYMPHOCYTES % 23.2 % (18.0-39.1); MEAN CORPUSCULAR HEMOGLOBIN 32.2 pg (28-32); MEAN CORPUSCULAR HGB CONC 31.9 g/dL (31-35); MEAN CORPUSCULAR VOLUME 100.9 fL (81-99); MONOCYTES # (AUTO) 0.7 (0.2-0.8); MONOCYTES % 14.3 % (4.4-11.3); NEUTROPHILS # (AUTO) 2.6 (2.1-6.9); PLATELET COUNT 226 x10e3/uL (140-360); RED BLOOD COUNT 3.29 x10e6/uL (3.6-5.1); RED CELL DISTRIBUTION WIDTH 13.2 % (11.7-14.4)
[2019-10-10 05:38] LABS: CREATINE KINASE 148 IU/L (29-168)
[2019-10-10 05:38] LABS: ALANINE AMINOTRANSFERASE 27 IU/L (0-55); ALBUMIN 3.5 g/dL (3.5-5.0); ALBUMIN/GLOBULIN RATIO 1.3 (0.8-2.0); ALKALINE PHOSPHATASE 71 IU/L (40-150); ANION GAP 16.1 mmol/L (8-16); BLOOD UREA NITROGEN 12 mg/dL (7-26); BUN/CREATININE RATIO 14 (6-25); CALCIUM 9.4 mg/dL (8.4-10.2); CARBON DIOXIDE 22 mmol/L (22-29); CHLORIDE 109 mmol/L (98-107); CHOL/HDL RATIO 5.2 (3.0-3.6); CHOLESTEROL 166 MD/DL (0-199); CREATININE, SERUM 0.87 mg/dL (0.57-1.11); EST GLOMERULAR FILTRATION RATE > 60 ML/MIN (60-); GLUCOSE 123 mg/dL (74-118); HDL CHOLESTEROL 32 MG/DL (40-60); LDL CHOLESTEROL 87 MG/DL (60-130); POTASSIUM 4.1 mmol/L (3.5-5.1); SODIUM 143 mmol/L (136-145); TRIGLYCERIDES 237 MG/DL (0-149)
[2019-10-10] MEDS ORDERED: FAMOTIDINE 20 MG TAB PO SCH (07:30)
[2019-10-10] MEDS: INSULIN LISPRO 100 UNIT/1 ML 3ML VIAL SQ SCH ×2 (07:30→12:16)
[2019-10-10 07:54] VITALS: BP 109/69
[2019-10-10 07:59] VITALS: BP 109/69
[2019-10-10] MEDS ORDERED: ASPIRIN 81 MG CHEW TAB PO SCH (09:00)
[2019-10-10 11:57] VITALS: BP 118/72
[2019-10-10] MEDS ORDERED: TYLENOL WITH C1 EACH PO (12:19)
--- NOTE | 2019-10-10 13:00 | NUR ---
Right AC IV discontinued. No signs of infiltration noted. 2x2 gauze and coban placed. Taken via wheelchair to personal car. AAOX4 to time, person, place, situation. Respirations even and unlabored. Discharge instructions, rx, and all personal belongings taken with patient.
[2019-10-10] MEDS ORDERED: METOPROLOL SUCCINATE 25 MG TAB XL PO SCH (17:00)
[2019-10-10] MEDS ORDERED: ATORVASTATIN 40 MG TAB PO SCH (21:00)
[2019-10-11] MEDS ORDERED: LEVOTHYROXINE SODIUM 50 MCG TAB PO SCH (06:30)
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
== END 2019-10-10 13:04 | disposition home or self-care (01) ==
LOC: ER 14:57 → ERHOLD 16:23 → MED/SURG3 18:29
PROVIDERS: ADMIT Internal Medicine; ATTEND Internal Medicine
DX: R07.9 Chest pain, unspecified (principal); I25.10 Atherosclerotic heart disease of native coronary artery without angina pectoris; Z95.5 Presence of coronary angioplasty implant and graft; E11.9 Type 2 diabetes mellitus without complications; Z11.59 Encounter for screening for other viral diseases; E66.9 Obesity, unspecified; Z68.38 Body mass index [BMI] 38.0-38.9, adult; Z87.891 Personal history of nicotine dependence; R00.0 Tachycardia, unspecified; K51.90 Ulcerative colitis, unspecified, without complications; V49.9XXA Car occupant (driver) (passenger) injured in unspecified traffic accident, initial encounter
CPT/HCPCS: 36415 ×2; 70450; 71260; 72125; 73590; 74177; 80053 ×2; 80061; 81001; 82550 ×2; 82553 ×2; 82948 ×2; 83036; 83735; 83880; 84443; 84484 ×2; 85025 ×2; 85610; 85730; 86850; 86900; 87086; 90471; 90714; 93005; 93306; 99284; G0378 ×2; J2270 ×2; J2405 ×2; J7030; Q9967; U0002